=== PATIENT | female | born 1945 | race Caucasian/White ===

== ENCOUNTER 2020-08-31 06:19 | Day surgery (SDC) | payer MEDICARE, BC ==
[~2020-08-31 06:19] MED LIST: COQ-10100 MG PO; FISH OIL 1,0001 EAC1 PO; LATANOPROST2.5 ML OPTH; SIMVASTATIN40 MG PO; VITAMIN D31000 UNI1 PO
[2020-08-31] MEDS ORDERED: IRBESARTAN-HCT1 EACH PO (06:38)
--- NOTE | 2020-08-31 06:47 | NUR ---
STATES COMPLETED BOWEL PREP AND FEELS CLEANED. IN CAR WAITING.
--- NOTE | 2020-08-31 08:16 | NUR ---
08/31/20 0816 Clau Grady 0812 PATIENT ARRIVES TO PACU AWAKE AND ASKING QUESTIONS APPROPRIATELY. RESP EVEN AND UNLABORED, ROOM AIR SATS >97%. DENIES PAIN OR NAUSEA.
--- NOTE | 2020-09-02 12:23 | OR ---
[facility] [address], [place] [address] Signed DATE OF OPERATION: 08/31/2020 SURGEON: Rafiq Calhoun MD PREOPERATIVE DIAGNOSES: 1. Family history of colon cancer (mother). 2. History of tubular adenoma x3, 2015. POSTOPERATIVE DIAGNOSIS: Normal colon to cecum. PROCEDURE: Total colonoscopy to cecum. ANESTHESIA: Intravenous sedation, fentanyl 100 mcg and Versed 4 mg. INDICATION: This 75-year-old white woman is a patient of Dr. Rafiq Ritchie and known to me from the past. She last underwent colonoscopy in 2015, at which time she had three tubular adenomas, which were excised. She does have family history of colon cancer in a mother, who of the disease. She is currently asymptomatic. She is here for surveillance colonoscopy, she understand the risks of bleeding, infection, and perforation. FINDINGS: The prep was good. Complete colonoscopy was undertaken of the cecum. The colon was somewhat tortuous, but full intubation of the cecum was accomplished. There were no signs of polyps, diverticular formation, colitis, or cancer. DESCRIPTION OF PROCEDURE: The patient was brought to the endoscopy suite and placed in lateral decubitus position, given intravenous sedation to the point of slurred speech and nystagmus. Digital rectal examination was normal. An Olympus video colonoscope was passed in the rectum and manipulated throughout the colon ultimately intubating the cecum. The ileocecal valve and appendiceal orifice were normal. Scope was withdrawn from that point and examination throughout showed no sign of abnormality, specifically no polyps, diverticular formation, colitis, or cancer. Retroflex view was normal as well. The scope was removed and the patient was taken to the recovery room in good condition. Electronically Signed By: RAFIQ CALHOUN MD 09/02/20 1223 PATIENT NAME: KRISTINA COATS OPERATIVE REPORT DATE OF : 41 REPORT #: [id number] PHYSICIAN: RAFIQ CALHOUN MD PCP: KERRY RITCHIE MD REPORT IS CONFIDENTIAL AND NOT TO BE RELEASED WITHOUT AUTHORIZATION [facility] [address], [place] [address] Signed CONCLUDING DIAGNOSIS: Normal colon to cecum. PLAN: Recommend a repeat colonoscopy in 5 years if clinically appropriate at her age of 80 based on family history and her personal history of polyps. She will return to the ongoing care of Dr. Ritchie. Rafiq Calhoun MD JM/MODL /[id number] cc: Kerry Ritchie MD Copies: KERRY RITCHIE MD ~ Electronically Signed By: RAFIQ CALHOUN MD 09/02/20 1223 PATIENT NAME: KRISTINA COATS OPERATIVE REPORT DATE OF : 41 REPORT #: [id number] PHYSICIAN: RAFIQ CALHOUN MD PCP: KERRY RITCHIE MD REPORT IS CONFIDENTIAL AND NOT TO BE RELEASED WITHOUT AUTHORIZATION
== END 2020-08-31 08:40 | disposition home or self-care (01) ==
LOC: OPS 06:19 → DS 06:19 → OPS 06:45 → DS 06:45 → OPS 08:40
PROVIDERS: ATTEND Surgery
PROC: 0DJD8ZZ Inspection of Lower Intestinal Tract, Via Natural or Artificial Opening Endoscopic (ICD-10-PCS; principal; 2020-08-31 06:45)
DX: Z12.11 Encounter for screening for malignant neoplasm of colon (principal); Z80.0 Family history of malignant neoplasm of digestive organs; Z86.010 Personal history of colon polyps
CPT/HCPCS: 99153; G0500; J2250; J3010; J7121